=== PATIENT | male | born 1945 | race Caucasian/White ===

== ENCOUNTER 2017-11-07 12:11 | Emergency (ER) | payer OTHER ==
[~2017-11-07] VITALS: Ht 170.2 cm; Wt 81.2 kg
[2017-11-07] MEDS ORDERED: LASIX40 MG (12:50)
[2017-11-07] MEDS ORDERED: COUMADIN5 MG (12:50)
[2017-11-07] MEDS ORDERED: PEPCID AC20 MG (12:51)
[2017-11-07] MEDS ORDERED: CAPOTEN12.5 MG (12:51)
[2017-11-07] MEDS ORDERED: CARVEDILOL3.125 MG (12:52)
[2017-11-07] MEDS ORDERED: METFORMIN HCL500 MG (12:52)
[2017-11-07] MEDS ORDERED: ZOCOR20 MG (12:52)
[2017-11-07] MEDS ORDERED: SYNTHROID50 MCG (12:52)
[2017-11-07] MEDS ORDERED: NITROSTAT0.4 MG (12:53)
[2017-11-07] MEDS ORDERED: MISTASSIST KIT1 EACH (12:53)
[2017-11-07] MEDS ORDERED: PROAIR HFA8.5 GM (12:54)
[2017-11-08] MEDS ORDERED: MUCINEX DM ER1 EAC1 PO (02:49)
[2017-11-08] MEDS ORDERED: LEVALBUTER1.25 MG/3 IH (02:49)
[2017-11-08] MEDS ORDERED: LEVAQUIN750 MG PO (02:49)
[2017-11-08] MEDS ORDERED: MEDROLPACK PO (02:49)
== END 2017-11-08 02:44 | disposition home or self-care (01) ==
LOC: ER 12:11
DX: J18.0 Bronchopneumonia, unspecified organism (principal); K29.70 Gastritis, unspecified, without bleeding; R10.13 Epigastric pain; R10.31 Right lower quadrant pain; J11.1 Influenza due to unidentified influenza virus with other respiratory manifestations

== ENCOUNTER → 2018-02-19 | Emergency (ER) | payer OTHER ==
[~2018-02-19] MED LIST: CAPOTEN12.5 MG; CARVEDILOL3.125 MG; COUMADIN5 MG; LASIX40 MG; LEVALBUTER1.25 MG/3 IH; LEVAQUIN750 MG PO; MEDROLPACK PO; METFORMIN HCL500 MG; MISTASSIST KIT1 EACH; MUCINEX DM ER1 EAC1 PO; NITROSTAT0.4 MG; PEPCID AC20 MG; PROAIR HFA8.5 GM; SYNTHROID50 MCG; ZOCOR20 MG
== END | disposition left against medical advice (07) ==
LOC: ER 10:47
DX: Z53.20 Procedure and treatment not carried out because of patient's decision for unspecified reasons (principal)

== ENCOUNTER 2018-08-04 18:26 | Emergency (ER) | payer OTHER ==
[~2018-08-04] VITALS: Ht 165.1 cm; Wt 84.4 kg
[2018-08-04] MEDS ORDERED: SYNTHROID75 MCG PO (19:34)
[2018-08-04] MEDS ORDERED: ALDACTONE25 MG PO (19:35)
[2018-08-04] MEDS ORDERED: DIGOX125 MCG PO (19:36)
[2018-08-04] MEDS ORDERED: PLAVIX75 MG PO (19:36)
== END 2018-08-04 21:19 | disposition home or self-care (01) ==
LOC: ER 18:26
DX: L03.114 Cellulitis of left upper limb (principal)

== ENCOUNTER 2018-11-21 21:58 | Emergency (ER) | payer OTHER ==
[~2018-11-21] VITALS: Ht 165.1 cm; Wt 82.6 kg
[~2018-11-21 21:58] MED LIST changes: +ALDACTONE25 MG PO; +DIGOX125 MCG PO; +PLAVIX75 MG PO; +SYNTHROID75 MCG PO
[2018-11-21] MEDS ORDERED: FUROSEMIDE40 MG (22:14)
[2018-11-21] MEDS ORDERED: COUMADIN5 MG (22:15)
[2018-11-21] MEDS ORDERED: CAPOTEN12.5 MG (22:15)
[2018-11-21] MEDS ORDERED: ACID CONTROLLER20 MG (22:15)
[2018-11-21] MEDS ORDERED: PLAVIX75 MG (22:16)
[2018-11-21] MEDS ORDERED: DIGOX125 MCG (22:16)
[2018-11-21] MEDS ORDERED: CARVEDILOL3.125 MG (22:16)
[2018-11-21] MEDS ORDERED: METFORMIN HCL500 MG (22:16)
[2018-11-21] MEDS ORDERED: ZOCOR20 MG (22:16)
[2018-11-21] MEDS ORDERED: SYNTHROID75 MCG (22:17)
[2018-11-21] MEDS ORDERED: ALDACTONE25 MG (22:17)
[2018-11-21] MEDS ORDERED: PROAIR HFA8.5 GM (22:17)
[2018-11-21] MEDS ORDERED: SYMBICORT 16010.2 GM (22:18)
== END 2018-11-22 03:03 | disposition home or self-care (01) ==
LOC: ER 21:58
DX: J22 Unspecified acute lower respiratory infection (principal); J11.1 Influenza due to unidentified influenza virus with other respiratory manifestations

== ENCOUNTER 2018-12-26 16:26 | Emergency (ER) | payer OTHER ==
[~2018-12-26] VITALS: Ht 165.1 cm; Wt 81.6 kg
[~2018-12-26 16:26] MED LIST changes: +ACID CONTROLLER20 MG; +ALDACTONE25 MG; +DIGOX125 MCG; +FUROSEMIDE40 MG; +PLAVIX75 MG; +SYMBICORT 16010.2 GM; +SYNTHROID75 MCG
== END 2018-12-26 20:10 | disposition home or self-care (01) ==
LOC: ER 16:26
DX: M54.16 Radiculopathy, lumbar region (principal)

== ENCOUNTER 2019-01-24 17:51 | Emergency (ER) | payer OTHER ==
[~2019-01-24] VITALS: Ht 165.1 cm; Wt 83.9 kg
== END 2019-01-24 21:01 | disposition home or self-care (01) ==
LOC: ER 17:51
DX: R06.02 Shortness of breath (principal); R60.0 Localized edema

== ENCOUNTER → 2019-02-14 | Emergency (ER) | payer OTHER ==
[~2019-02-14] VITALS: Ht 170.2 cm; Wt 77.1 kg
== END | disposition home or self-care (01) ==
LOC: ER 17:55
DX: J45.998 Other asthma (principal); R06.02 Shortness of breath

== ENCOUNTER 2019-02-23 05:18 | Inpatient (IN) | payer OTHER ==
[~2019-02-23] VITALS: Ht 152.4 cm; Wt 79.4 kg
--- NOTE | 2019-02-23 05:32 | NUR ---
SE RECIBE PACIENTE QUE REFIERE DIFICULTAD RESPIRATORIA. HIJA DE PACIENTE VERBALIZA QUE EL PACIENTE PADECE DE COPD. PACIENTE SE MUESTRA AL MOMENT ALERTA Y ORIENTADO X3.
--- NOTE | 2019-02-23 06:12 | NUR ---
SE RECIBE PTE MASCULINO DE 73 YRS ALERTA CONCIENTE Y TRANQUILO EN COMPANIA DE FAMILIAR. PTE ES EVALUADO POR EL DR, RACHEL QUEIN ORDENA TRAMTAMIENTO LA CUAL SE EJECUTA. SE MANTIENE BAJO OBSERVACION POR CAMBIOS.
--- NOTE | 2019-02-23 13:35 | NUR ---
SE RECIBE LLAMADA DE LABORATORIO, MUESTRA DE ESPUTO SIN SECRECIONES SUFICIENTES. SE ENTREGA ENVASE A PT Y SE LE ORIENTA SOBRE RECOLECCION DE MUESTRA.,
--- NOTE | 2019-02-23 17:03 | NUR ---
SE RECIBE PACIENTE ALERTA Y ORIENTADO EN CAMA CON BARRANDAS ELEVADAS POR EU SEGURIDAD. PACIENTE CON VENOPUNCION PAENTE MICKY DE EDEMA Y ERRITEMA. PACIENTE CON VENTUTY MASK AL 35%. PACIENTE CONSULTADO CON EL DR. FILOMENA MARQUIS.
== END 2019-03-04 19:26 | disposition home or self-care (01) | DRG 193 ==
LOC: ER 05:18 → SEC-K 20:46 → MEDJ 20:46
PROVIDERS: ADMIT Internal Medicine
PROC: 4A033R1 Measurement of Arterial Saturation, Peripheral, Percutaneous Approach (ICD-10-PCS; 2019-02-23)
PROC: 3E0F7GC Introduction of Other Therapeutic Substance into Respiratory Tract, Via Natural or Artificial Opening (ICD-10-PCS; 2019-02-23)
PROC: BW24YZZ Computerized Tomography (CT Scan) of Chest and Abdomen using Other Contrast (ICD-10-PCS; principal; 2019-02-24)
PROC: B246ZZZ Ultrasonography of Right and Left Heart (ICD-10-PCS; 2019-02-26)
PROC: CB221ZZ Tomographic (Tomo) Nuclear Medicine Imaging of Lungs and Bronchi using Technetium 99m (Tc-99m) (ICD-10-PCS; 2019-02-27)
DX: J16.8 Pneumonia due to other specified infectious organisms (principal); I50.43 Acute on chronic combined systolic (congestive) and diastolic (congestive) heart failure; B37.1 Pulmonary candidiasis; J44.1 Chronic obstructive pulmonary disease with (acute) exacerbation; J45.31 Mild persistent asthma with (acute) exacerbation; I01.1 Acute rheumatic endocarditis; J98.11 Atelectasis; J44.0 Chronic obstructive pulmonary disease with (acute) lower respiratory infection; I11.0 Hypertensive heart disease with heart failure; I27.29 Other secondary pulmonary hypertension; J20.9 Acute bronchitis, unspecified; J45.40 Moderate persistent asthma, uncomplicated; R06.02 Shortness of breath; E11.9 Type 2 diabetes mellitus without complications; Z79.4 Long term (current) use of insulin; I25.10 Atherosclerotic heart disease of native coronary artery without angina pectoris; D72.828 Other elevated white blood cell count; R09.02 Hypoxemia; E03.8 Other specified hypothyroidism

== ENCOUNTER 2019-04-25 22:56 | Emergency (ER) | payer OTHER ==
[~2019-04-25] VITALS: Ht 172.7 cm; Wt 79.4 kg
[2019-04-25] MEDS ORDERED: PEPCID20 MG (23:29)
[2019-04-25] MEDS ORDERED: SYNTHROID100 MCG (23:30)
[2019-04-26] MEDS ORDERED: ULTRACET PO (02:26)
== END 2019-04-26 02:49 | disposition home or self-care (01) ==
LOC: ER 22:56
DX: R60.0 Localized edema (principal)